=== PATIENT | female | born 1990 | race Caucasian/White ===

== ENCOUNTER 2022-08-01 13:46 | Emergency (ER) | payer SELFPAY ==
[~2022-08-01] VITALS: Ht 162.5 cm; Wt 129.3 kg
[~2022-08-01 13:46] MED LIST: PREDNISONE20 M1 PO
[2022-08-01] MEDS ORDERED: LEXAPRO20 MG PO (14:59)
[2022-08-01] MEDS ORDERED: ABILIFY2 MG PO (14:59)
[2022-08-01 15:25] LABS: BILIRUBIN Negative (Negative); BLOOD Negative (Negative); CLARITY Clear (Clear); COLOR Yellow (Yellow); GLUCOSE Negative (Negative); KETONE Negative (Negative); LEUKO ESTERASE Negative (Negative); NITRITE Negative (Negative); UROBILINOGEN 0.2 E.U./dl (0.0-1.0)
[2022-08-01 15:34] LABS: RBC 0-2 rbc/hpf (0-2)
[2022-08-01] MEDS ORDERED: METRONIDAZOLE500 M1 PO (16:01)
== END 2022-08-01 16:16 | disposition home or self-care (01) ==
LOC: ED 13:46
PROVIDERS: Student in an Organized Health Care Education/Training Program
DX: M25.561 Pain in right knee (principal); A59.9 Trichomoniasis, unspecified; Z88.1 Allergy status to other antibiotic agents; Z88.8 Allergy status to other drugs, medicaments and biological substances; Z79.899 Other long term (current) drug therapy

== ENCOUNTER 2022-08-31 19:32 | Emergency (ER) | payer MEDICAID ==
[~2022-08-31] VITALS: Ht 162.5 cm; Wt 131.5 kg
[~2022-08-31 19:32] MED LIST changes: +ABILIFY2 MG PO; +LEXAPRO20 MG PO; +METRONIDAZOLE500 M1 PO
[2022-09-01] MEDS ORDERED: ONDANSETRON4 MG SL (07:31)
== END 2022-08-31 20:27 | disposition home or self-care (01) ==
LOC: ED 19:32
DX: S61.215A Laceration without foreign body of left ring finger without damage to nail, initial encounter (principal); S60.222A Contusion of left hand, initial encounter; S80.01XA Contusion of right knee, initial encounter; Z79.899 Other long term (current) drug therapy; Z88.1 Allergy status to other antibiotic agents; Z88.8 Allergy status to other drugs, medicaments and biological substances; W10.8XXA Fall (on) (from) other stairs and steps, initial encounter; Y93.01 Activity, walking, marching and hiking; Y92.89 Other specified places as the place of occurrence of the external cause; Y99.9 Unspecified external cause status

== ENCOUNTER 2022-09-01 04:09 | Emergency (ER) | payer MEDICAID ==
[~2022-09-01] VITALS: Ht 162.5 cm; Wt 131.5 kg
[2022-09-01] MEDS ORDERED: ONDANSETRON4 MG SL (07:31)
== END 2022-09-01 07:37 | disposition home or self-care (01) ==
LOC: ED 04:09
DX: K52.9 Noninfective gastroenteritis and colitis, unspecified (principal); Z88.1 Allergy status to other antibiotic agents; Z88.8 Allergy status to other drugs, medicaments and biological substances; Z79.899 Other long term (current) drug therapy

== ENCOUNTER 2023-06-06 11:38 | Emergency (ER) | payer OTHER ==
[~2023-06-06] VITALS: Ht 162.5 cm; Wt 136.1 kg
[~2023-06-06 11:38] MED LIST changes: +ONDANSETRON4 MG SL
== END 2023-06-06 12:09 | disposition home or self-care (01) ==
LOC: ED 11:38
DX: Z01.84 Encounter for antibody response examination (principal); F32.A Depression, unspecified; Z88.8 Allergy status to other drugs, medicaments and biological substances; Z88.2 Allergy status to sulfonamides

== ENCOUNTER → 2023-08-13 | Outpatient (CLI) | payer OTHER ==
[2023-08-13 17:39] LABS: BASO % 0.4 % (0.0-1.0); EOS # 0.1 10*3/uL (0.0-0.4); EOS % 0.8 % (1.0-4.0); HEMATOCRIT 39.4 % (37.0-47.0); LYMPH # 2.7 10*3/uL (1.3-4.4); LYMPH % 30.2 % (27.0-41.0); MEAN CELL VOLUME 85.8 fl (81.0-99.0); MEAN CORPUSCULAR HGB 28.1 pg (27.0-31.0); MEAN CORPUSCULAR HGB CONC 32.7 g/dl (33.0-37.0); MONO # 0.5 10*3/uL (0.1-1.0); MONO % 5.2 % (3.0-9.0); NEUT # 5.7 10*3/uL (2.3-7.9); NEUT % 63.1 % (47.0-73.0); PLATELET COUNT AUTOMATED 334 10*3/uL (130-400); RED BLOOD COUNT 4.59 10*6/uL (4.10-5.10); RED CELL DISTRI WIDTH 13.5 % (0-14.5)
[2023-08-13 17:56] LABS: ALKALINE PHOSPHATASE 73 U/L (46-116); BUN 10 mg/dl (9-23); CHLORIDE 105 mmol/L (98-107); SGPT/ALT 13 U/L (5-49); TOTAL PROTEIN 7.5 gm/dL (6.0-8.0)
[2023-08-15 09:07] LABS: HEPATITIS C QNT HCV Not Detected IU/mL (.)
== END | disposition home or self-care (01) ==
LOC: LAB 17:04
PROVIDERS: ATTEND Physician Assistant Medical
DX: B18.2 Chronic viral hepatitis C (principal)

== ENCOUNTER 2023-09-14 16:18 | Emergency (ER) | payer OTHER ==
[~2023-09-14] VITALS: Ht 162.5 cm; Wt 142.0 kg
== END 2023-09-14 18:30 | disposition left against medical advice (07) ==
LOC: ED 16:18
DX: R11.2 Nausea with vomiting, unspecified (principal); R19.7 Diarrhea, unspecified; R42 Dizziness and giddiness; R50.9 Fever, unspecified; Z88.2 Allergy status to sulfonamides; Z88.8 Allergy status to other drugs, medicaments and biological substances; Z53.21 Procedure and treatment not carried out due to patient leaving prior to being seen by health care provider

== ENCOUNTER → 2024-05-10 | Outpatient (CLI) | payer OTHER ==
[2024-05-10 11:52] LABS: TOTAL PROTEIN 7.5 gm/dL (6.0-8.0)
[2024-05-12 16:09] LABS: HEPATITIS C QUANTITATION HCV Not Detected IU/mL (.)
== END | disposition home or self-care (01) ==
LOC: LAB 10:41 → EDSTATUS 11:13
PROVIDERS: ATTEND Physician Assistant Medical
DX: Z86.19 Personal history of other infectious and parasitic diseases (principal)